=== PATIENT | male | born 1995 | race Caucasian/White ===

== ENCOUNTER 2018-10-31 07:11 | Emergency (ER) | payer OTHER, SELFPAY ==
[2018-10-31 07:16] VITALS: BP 153/82; PULSE 78; RESP 16; TEMP 36.4; O2SAT 99
--- NOTE | 2018-10-31 07:19 | W.ED.GENAD ---
Discharge Plan Disposition Patient Disposition: OTHER Condition: Stable Discharge Details Chief Complaint: EyeProblem Clinical Impression: Foreign body in eye, Irritation of left eye Primary Care Provider: Angela Chowdhury ED Provider: Heidy Franks Home Meds and New Rx's Prescriptions: Continued ondansetron 4 MG tablet,disintegrating 4 mg PO Q6H PRN PRNQty: 8 RF: 0 Discharge Instructions Instructions: Eye Foreign Body (ED) Additional Instructions: Go directly to [facility] at [address] [place] [address] now to be evaluated. Their number is [phone]. Return to the emergency department with any worsening or new concerning symptoms. Discharge Data Discharge Date/Time-TO BE ENTERED AT DEPARTURE: 10/31/18 08:30 Discharge Physician: Heidy Franks Medical Decision Making 23yo M w/ with no past medical history presents with left eye irritation, foreign body sensation and photophobia for the past 2 days that started after mowing the lawn. 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 There is a 1 mm brown or black speck noted between 10 and 11:00 of the left eye within the cornea. There is also a scleral abrasion noted below the cornea between 6 and 7:00. Exam done using fluorescein strip, Sheppard lamp and slit lamp. There is no additional foreign bodies noted with eyelid eversion. PERRLA. EOMI. The area was anesthesized tetracaine drops and a 18-gauge needle was used to remove what appears to be the majority of the speck/foreign body and may be a brown stain remaining but possible that there could be a small amount of foreign body still embedded. Case discussed with [facility] who will evaluate patient this morning. Patient was given a tube of erythromycin to go and advised to go directly to [facility] and to return here with any concerns. Of note, patient's last tetanus was 2008. It was recommended for him to obtain a tetanus booster but he is declining at this time. The risks of and disability due to tetanus disease were explained and patient fully understands and would rather opt out at this time. He is advised to follow-up with his primary care doctor or return here if he changes his mind. HPI General Mode of arrival: ambulatory. Date/Time Provider Initiated Documentation: 10/31/18 07:16. Limitations to Documentation: no limitations. Information obtained by: patient. HPI Narrative: Pt is a 23yo M who presents with L eye irritation, foreign body sensation and sensitivity to light for the past two days. Patient states his symptoms started a few hours after he mowed the lawn 2 days ago. Patient states it initially started as an irritation and now is becoming progressively irritated more sensitive to light. Patient wears corrective glasses but does not wear contacts. He is unsure of his last tetanus status. He denies blurry vision, floaters, flashes or spots in vision, itching, significant pain, headache or dizziness. Patient states he works as a bookkeeping machine mechanic but does not think that he sustained any injury from there. Related Data Home Medications Medication Instructions Recorded Confirmed ondansetron 4 mg PO Q6H PRN PRN #8 tabef 02/12/14 Previous Rx's Medication Instructions Recorded ondansetron 4 mg PO Q6H PRN PRN #8 tabef 02/12/14 Allergies Allergy/AdvReac Type Severity Reaction Status Date / Time No Known Allergies Allergy Unverified 02/12/14 05:55 General Stated Complaint: EyeProblem JEANNE: 4 Review of Systems Review of Systems All systems reviewed & are unremarkable except as noted in HPI and below Constitutional Reports as per HPI, Denies chills, Denies fever(s) and Denies headache(s) Eyes Denies blurry vision, Denies diplopia, Denies eye discharge, Reports irritation, Denies itchy eyes, Denies loss of vision, Reports requires corrective lenses, Denies seeing flashes, Reports photophobia and Denies spots in vision ENT Denies dizziness, Denies headache(s), Denies sore throat and Denies throat swelling Cardiovascular Denies chest pain and Denies dyspnea Respiratory Denies cough and Denies dyspnea Gastrointestinal Denies abdominal pain, Denies diarrhea and Denies vomiting Genitourinary Denies hematuria and Denies dysuria Musculoskeletal Denies back pain and Denies numbness Integumentary/Breasts Denies lesions and Denies rash Neurologic Denies dizziness, Denies headache(s), Denies focal weakness, Denies loss of vision and Denies numbness Allergic/Immunologic Denies itchy eyes and Denies throat swelling [facility] Medical History No significant past medical history (Acute) Surgical History No significant past surgical history (Acute) Social History Smoking/Tobacco Use Status: Never Drug use: Never Do you feel safe at home: Yes Do you feel safe in your relationship?: Yes Exam Const General: cooperative, healthy appearing and no acute distress HENMT Head: normal to inspection Ears: hearing grossly normal bilaterally and external ears normal General nose exam: external nose normal Face and sinus: normal facial exam Mouth: oral mucosae normal Eyes General: appearance normal, both eyes and all related structures Eyes/upper lids images: 1. Left eye notes a dark brown or black speck between 10 and 11:00 o'clock with mild surrounding rust ring, mainly on inferior aspect. There is a scleral abrasion noted between 6 and 7:00 o'clock below the cornea. Neck Neck: normal visual inspection Resp Effort & Inspection: normal respiratory effort and able to speak in complete sentences Cardio Rate: regular rate Skin General skin exam: no rashes or lesions noted Neuro General: alert, awake and oriented x3 Motor: muscle tone normal throughout Extrem General: normal to inspection and full ROM Psych Appearance: grossly normal Affect: normal affect Course Vital Signs Temperature 97.5 F L 10/31/18 07:16 Pulse 78 10/31/18 07:16 Respiratory Rate 16 10/31/18 07:16 Blood Pressure 153/82 H 10/31/18 07:16 Pulse Oximetry 99 10/31/18 07:16 Temperature 97.5 F L 10/31/18 07:16 Pulse 78 10/31/18 07:16 Respiratory Rate 16 10/31/18 07:16 Blood Pressure 153/82 H 10/31/18 07:16 Blood Pressure Position Sitting 10/31/18 07:16 Pulse Oximetry 99 10/31/18 07:16 Oxygen Delivery Method Room Air 10/31/18 07:16 Oxygen Flow Rate 0 10/31/18 07:16 Pain Level 4 10/31/18 07:16
[2018-10-31] MEDS: Tetracaine 0.5% 4 ML BTL (08:30)
[2018-10-31] MEDS: Erythromycin Ophth Oint 3.5 GM TUBE OU (08:30)
[2018-10-31] MEDS: Fluorescein STRIPS 100/BOX 1 MG (08:30)
--- NOTE | 2018-10-31 08:30 | NUR.NOTE ---
dc reviewed with pt able to verblize understanding pt advised to fu with dr feliz for further eval after dc pt agreeable with this plan Nursing Note:
== END 2018-10-31 08:30 | disposition other institution (70) ==
PROVIDERS: Emergency Provider Physician Assistant; PCP Pediatrics
DX: T15.02XA Foreign body in cornea, left eye, initial encounter (principal); H53.142 Visual discomfort, left eye
CPT/HCPCS: 65222